=== PATIENT | male | born 1965 | race Caucasian/White ===

== ENCOUNTER 2019-11-07 11:05 | Emergency (ER) | payer OTHER, SELFPAY ==
--- NOTE | ~2019-11-07 | XR_ITS ---
XR finger 3rd RT min 2V DATE: 11/07/2019 11:25 INDICATION: Laceration to finger tip through nail with poultry trimmer TECHNIQUE: 4 views COMPARISON: None FINDINGS: There is a linear longitudinal lucency through the midportion of the tuft of the distal pha lanx consistent with nondisplaced distal phalangeal tuft fracture. No other fracture or dislocation. No radiopaque foreign body. IMPRESSION: Small linear nondisplaced tuft fracture of distal phalanx Reviewed, dictated and finalized at location A.
[2019-11-07 11:13] VITALS: BP 143/97; PULSE 90; RESP 18; TEMP 36.8; O2SAT 98
[2019-11-07] MEDS: TETANUS,DIPHTHERIA,AC PERTUSSIS ADULT (0.5 ML) BOOSTRIX IM (12:08)
[2019-11-07 12:33] VITALS: BP 142/102; PULSE 66; RESP 18; O2SAT 95
--- NOTE | 2019-11-07 12:49 | ED.WOUNDLAC ---
HPI - Wound/Laceration General Chief Complaint: Wound/Laceration Stated Complaint: R HAND Time Seen by Provider: 11/07/19 11:11 History of Present Illness HPI narrative: Patient is a 54-year-old male who presents the ER with injury to his right third digit. He was using a hedge tremor when he somehow got the distal tip of the finger caught in cut through the tip vertically going from the palmar aspect through the nail. No numbness or tingling. Tetanus is not up-to-date. Range of motion is intact throughout the hand. He is concerned he actually cut through his bone. Wound appears well approximated. Related Data Allergies Allergy/AdvReac Type Severity Reaction Status Date / Time No Known Allergies Allergy Verified 11/07/19 11:21 Review of Systems Review of Systems: All systems reviewed & are unremarkable except as noted in HPI and below Integumentary/Breasts: Comments: Laceration through right third digit distal tip Neurologic: Denies focal weakness and Denies numbness PMFSH Past Medical History Medical History (Updated 11/07/19 @ 14:05 by Trevin Rivers MD) No pertinent past medical history Surgical History Surgical History (Updated 11/07/19 @ 12:51 by Trevin Rivers MD) No pertinent past surgical history Social History Social History (Updated 11/07/19 @ 12:51 by Trevin Rivers MD) Substance use type: marijuana Gender identity (if verbalized by the patient): Male Exam Narrative: Exam Narrative: GENERAL: Well-appearing, well-nourished, and in no acute distress. HEAD: Normocephalic, atraumatic. EXTREMITIES: Focused exam of the right upper extremity reveals a laceration to the distal tip of the third digit involving the distal third of the fingernail and going around to the fat pad of the finger. There is no fat exposed. Wound margins seem well approximated within 1 mm of each other. Bleeding well controlled. Sharp and soft touch intact. Focused strength exam of the DIP and PIP of the affected digit show intact strength and range of motion with flexion and extension. SKIN: Warm, dry, no rash. NEURO: No focal deficits. Alert and oriented x3. PSYCH: Normal mood and affect. Course Course Emergency Course: Patient informed of results. Dr. Redd consulted. Will not close wound site if infection occurs 6 and have an area to drain, the area the laceration is very well approximated not particularly open. You cannot see the bone through the wound. Finger is been soaked and cleaned. Triple antibiotic applied and bandage applied as well. Patient is received IV Ancef will be discharged on Keflex. Tetanus is been updated. Vital Signs Vital signs: Vital Signs Temperature 98.2 F 11/07/19 11:13 Pulse Rate 90 11/07/19 11:13 Respiratory Rate 18 11/07/19 11:13 Blood Pressure 143/97 H 11/07/19 11:13 Pulse Oximetry 98 11/07/19 11:13 Temperature 98.2 F 11/07/19 11:13 Pulse Rate 66 11/07/19 12:33 Respiratory Rate 18 11/07/19 12:33 Blood Pressure 142/102 H 11/07/19 12:33 Pulse Oximetry 95 11/07/19 12:33 MDM - Wound/Laceration Imaging Data Radiologist's impression: ITS Impressions Finger X-Ray 11/07/19 11:53 IMPRESSION: Small linear nondisplaced tuft fracture of distal phalanx Discharge Plan Discharge Clinical Impression: Laceration, Fracture of distal phalanx of finger of right hand Patient Disposition: Home, Self-Care Condition: Stable Instructions: Finger Fracture (ED) Additional Instructions: You have a fracture to your third finger that was a result of an interaction with a hedge tremor. Because this was a cutting motion this is considered an open fracture. You have received IV antibiotic, your tetanus shot has been updated, and you have been placed on oral antibiotics for home. Please contact the hand surgeon listed for a close follow-up exam. Prescriptions: New cephalexin [Keflex] 500 mg capsule 500 mg PO Q12H Qty
[2019-11-07 14:34] VITALS: BP 137/96; PULSE 66; RESP 18; O2SAT 100
== END 2019-11-07 14:46 | disposition home or self-care (01) ==
PROVIDERS: Emergency Provider Emergency Medicine
DX: S62.662A Nondisplaced fracture of distal phalanx of right middle finger, initial encounter for closed fracture (principal); W29.3XXA Contact with powered garden and outdoor hand tools and machinery, initial encounter; Z23 Encounter for immunization
CPT/HCPCS: 73140; 90471; 90715; 96365; 99284; J0690